=== PATIENT | female | born 1980 | race Caucasian/White ===

== ENCOUNTER 2016-06-17 14:18 | Emergency (ER) | payer MEDICAID ==
[2015-09-19 16:56] VITALS: BMI 31.5
[~2016-06-17 14:18] MED LIST: CELEXA10 MG PO; HYDROCODONE-APA1 TAB PO; MOTRIN600 MG PEG; PERCOCET 5-3251 TAB PO; XANAX0.5 MG PO
[2016-06-17 15:29] LABS: BASOPHILS 0.4 % (0.0-2.0); EOSINOPHILS 0.3 % (0-7); HEMATOCRIT 42.2 % (36.0-48.0); IMMATURE GRANULOCYTES 0.5 % (0-5); LYMPHOCYTES 9.2 % (15-50); MCH 32.2 pg (26.0-34.0); MCHC 33.2 g/dL (31.0-37.0); MEAN PLATELET VOLUME 10.6 fL (7.4-10.4); MONOCYTES 7.3 % (2-11); NEUTROPHILS 82.3 % (40-80); PLATELET COUNT 278 10x3/uL (130-400); RBC 4.35 10x6/uL (4.00-5.40); RDW 14.1 % (11.5-14.5); WBC 16.9 10x3/uL (4.8-10.8)
[2016-06-17 15:56] LABS: APPEARANCE HAZY (CLEAR); BILIRUBIN NEGATIVE (NEGATIVE); COLOR YELLOW (YELLOW); GLUCOSE NEGATIVE (NEGATIVE); KETONE MODERATE mg/dL (NEGATIVE); LEUKOCYTE ESTERASE NEGATIVE (NEGATIVE); NITRITE NEGATIVE (NEGATIVE); PROTEIN NEGATIVE (NEGATIVE); SPECIFIC GRAVITY 1.025 (1.005-1.020); UROBILINOGEN NORMAL (NORMAL)
[2016-06-17 15:59] LABS: ALBUMIN 4.3 g/dL (3.4-5.0); ALKALINE PHOSPHATASE 66 U/L (46-116); ALT (SGPT) 35 U/L (10-68); BILIRUBIN - TOTAL 0.56 mg/dL (0.2-1.3); CALC OSMOLALITY 278 mosm/kg (275-300); CALCIUM 8.8 mg/dL (8.5-10.1); CARBON DIOXIDE 23.3 mmol/L (21.0-32.0); CHLORIDE - SERUM 101 mmol/L (98-107); CREATININE - SERUM 0.8 mg/dL (0.6-1.3); GLUCOSE 103 mg/dL (74-106); POTASSIUM - SERUM 4.1 mmol/L (3.5-5.1); PROTEIN - SERUM 7.7 g/dL (6.4-8.2); SODIUM 139 mmol/L (136-145); UREA NITROGEN 16 mg/dL (7-18); eGFR NON AFRICAN AMERICAN 86 mL/min (90-120)
== END 2016-06-17 18:51 | disposition home or self-care (01) ==
LOC: D.ER 14:18
PROVIDERS: Emergency Medicine
DX: S70.01XA Contusion of right hip, initial encounter (principal); S40.021A Contusion of right upper arm, initial encounter; S50.11XA Contusion of right forearm, initial encounter; S30.1XXA Contusion of abdominal wall, initial encounter; S30.0XXA Contusion of lower back and pelvis, initial encounter; V49.9XXA Car occupant (driver) (passenger) injured in unspecified traffic accident, initial encounter; Y93.89 Activity, other specified; Y92.488 Other paved roadways as the place of occurrence of the external cause; F17.200 Nicotine dependence, unspecified, uncomplicated